=== PATIENT | male | born 1945 | race Caucasian/White ===

== ENCOUNTER 2022-03-05 21:41 | Emergency (ER) | payer MEDICARE ==
[2022-03-05 22:27] LABS: HEMOGLOBIN 15.2 gm/dl (14.0-17.5); RED BLOOD COUNT 4.91 M/UL (4.20-5.50); WHITE BLOOD COUNT 6.1 K/UL (4.5-11.0)
[2022-03-05 22:45] LABS: BUN/CREATININE RATIO 24 (0-10)
[2022-03-06] MEDS ORDERED: AMOX TR-K CLV1 EAC4 PO (01:23)
[2022-03-06] MEDS ORDERED: ZOFRAN ODT 4 MG4 MG PO (01:23)
[2022-03-06] MEDS ORDERED: KEPPRA500 MG PO (01:23)
== END 2022-03-06 01:40 | disposition home or self-care (01) ==
LOC: ER1 21:41
PROVIDERS: Family Medicine
DX: E11.65 Type 2 diabetes mellitus with hyperglycemia (principal); G30.9 Alzheimer's disease, unspecified; F02.80 Dementia in other diseases classified elsewhere, unspecified severity, without behavioral disturbance, psychotic disturbance, mood disturbance, and anxiety; R56.9 Unspecified convulsions; R91.8 Other nonspecific abnormal finding of lung field; J45.909 Unspecified asthma, uncomplicated; Z86.73 Personal history of transient ischemic attack (TIA), and cerebral infarction without residual deficits; Z87.891 Personal history of nicotine dependence; Z20.822 Contact with and (suspected) exposure to COVID-19
CPT/HCPCS: 0240U; 70450; 71045; 80053; 80307; 81001; 82550; 82553; 82962; 83690; 83735; 84484; 85025; 85379; 93005; 99285